=== PATIENT | female | born 1990 | race Caucasian/White ===

== ENCOUNTER 2017-12-29 11:58 | Inpatient (IN) | payer OTHER ==
[2017-12-29 12:21] VITALS: BMI 41.9
--- NOTE | 2017-12-29 13:41 | HP ---
CIWA Score - CIWA Score Nausea/Vomitin-Mild Nausea/No Vomiting Muscle Tremors: 4-Moderate,w/Arms Extend Anxiety: 4-Mod. Anxious/Guarded Agitation: 4-Moderately Restless Paroxysmal Sweats: 1-Minimal Palms Moist Orientation: 0-Oriented Tacttile Disturbances: 2-Mild Itch/Numbness/Burn Auditory Disturbances: 0-None Visual Disturbances: 0-None Headache: 2-Mild CIWA-Ar Total Score: 18 Admission ROS BHS - HPI Chief Complaint: ALCOHOL WITHDRAWAL SX Allergies/Adverse Reactions: Allergies Allergy/AdvReac Type Severity Reaction Status Date / Time No Known Allergies Allergy Verified 12/29/17 13:51 History of Present Illness: 27 YEARS OLD FEMALE WITH LONG HISTORY OF ALCOHOL NICOTINE DEPENDENCE HAS HYPERTENSION ANXIETY DEPRESSION IS ADMITTED TO DETOX Exam Limitations: No Limitations - Ebola screening Have you traveled outside of the country in the last 21 days: No Have you had contact with anyone from an Ebola affected area: No Have you been sick,other than usual withdrawal symptoms: No Do you have a fever: No - Review of Systems Constitutional: Changes in sleep, Weight Stable EENT: reports: Blurred Vision (CONTACT LENS CHANGE EVERY TWO WEEKS) Respiratory: reports: No Symptoms reported Cardiac: reports: No Symptoms Reported GI: reports: Nausea, Poor Fluid Intake, Abdominal cramping : reports: No Symptoms Reported Musculoskeletal: reports: No Symptoms Reported Integumentary: reports: Change in Color (BOTH ARMS) Neuro: reports: Tremors Endocrine: reports: No Symptoms Reported Hematology: reports: No Symptoms Reported Psychiatric: reports: Judgement Intact, Orientated x3, Anxious, Depressed Other Systems: Reviewed and Negative Patient History - Patient Medical History Hx Anemia: No Hx Asthma: No Hx Chronic Obstructive Pulmonary Disease (COPD): No Hx Cancer: No Hx Cardiac Disorders: No Hx Congestive Heart Failure: No Hx Hypertension: No Hx Hypercholesterolemia: No Hx Pacemaker: No HX Cerebrovascular Accident: No Hx Seizures: No Hx Dementia: No Hx Diabetes: No Hx Gastrointestinal Disorders: No Hx Liver Disease: No Hx Genitourinary Disorders: No Hx Sexually Transmitted Disorders: No Hx Renal Disease (ESRD): No Hx Thyroid Disease: No Hx Human Immunodeficiency Virus (HIV): No Hx Hepatitis C: No Hx Depression: Yes Hx Suicide Attempt: Yes (2009 CUT SELF) Hx Bipolar Disorder: No Hx Schizophrenia: No - Patient Surgical History Past Surgical History: No - PPD History Previous Implant?: Yes Documented Results: Negative w/proof Implanted On Prior [facility] Admission?: No PPD to be Administered?: Yes - Reproductive History Patient is a Female of Child Bearing Age (11 -55 yrs old): Yes Last Menstrual Period: 12/01/17 Patient : No - Smoking Cessation Smoking history: Current every day smoker Have you smoked in the past 12 months: Yes Cigars Per Day: 0 Hx Chewing Tobacco Use: No Initiated information on smoking cessation: Yes 'Breaking Loose' booklet given: 12/29/17 - Substance & Tx. History Hx Alcohol Use: Yes Hx Substance Use: No Substance Use Type: Alcohol Hx Substance Use Treatment: No ([facility]) - Substances Abused Alcohol-vodka Route: Oral Frequency: Daily Amount used: 2 pts. Age of first use: 17 Date of Last Use: 12/29/17 Family Disease History - Family Disease History Family History: Unremarkable Admission Physical Exam BHS - Vital Signs Vital Signs: Vital Signs - 24 hr 12/29/17 12:18 Temperature 99.7 F H Pulse Rate 126 H Respiratory 19 Rate Blood Pressure 168/101 - Physical General Appearance: Yes: Appropriately Dressed, Mild Distress, Obese, Tremorous , Irritable, Sweating, Anxious HEENTM: Yes: Hearing grossly Normal, Normocephalic, Normal Voice Respiratory: Yes: Chest Non-Tender, Lungs Clear, Normal Breath Sounds, No Respiratory Distress, No Accessory Muscle Use Neck: Yes: Supple, Trachea in good position Breast: Yes: Breasts Symetrical, No Discharge Cardiology: Yes: Regular Rhythm, S1, S2, Tachycardia Abdominal: Yes: Normal Bowel Sounds, Non Tender, Flat, Soft Genitourinary: Yes: Within Normal Limits Back: Yes: Normal Inspection Musculoskeletal: Yes: full range of Motion, Gait Steady Extremities: Yes: Normal Inspection, Normal Range of Motion, Non-Tender, Tremors Neurological: Yes: Fully Oriented, Alert, Motor Strength 5/5, Normal Response, Depressed Affect Integumentary: Yes: Warm Lymphatic: Yes: Within Normal Limits - Diagnostic (1) Alcohol dependence with uncomplicated withdrawal Current Visit: Yes Status: Acute (2) Hypertension Current Visit: Yes Status: Chronic Qualifiers: Hypertension type: essential hypertension Qualified Code(s): I10 - Essential (primary) hypertension (3) Depression (emotion) Current Visit: Yes Status: Suspected Qualifiers: Depression Type: dysthymia Qualified Code(s): F34.1 - Dysthymic disorder Cleared for Admission [facility] - Detox or Rehab [facility] Level of Care: Medically Managed Detox Regimen/Protocol: Librium [facility] Breath Alcohol Content Breath Alcohol Content: 0.094 Urine Pregancy Test - Result Urine Test Results: Negative- NO Line Present Urine Drug Screen - Results Drug Screen Negative: Yes
[2017-12-29] MEDS ORDERED: MENTHOL/PHENOL 1 EACH UD MM PRN (14:01)
[2017-12-29] MEDS ORDERED: P-EPHED 60MG/TRIPROLIDI 2.5MG TABLET PO PRN (14:01)
[2017-12-29] MEDS ORDERED: MAG HYDROX/AL HYDROX/SIMETH 30 ML UNIT-DOSE CUP PO PRN (14:01)
[2017-12-29] MEDS ORDERED: MAGNESIUM CITRATE 300 ML BOTTLE PO PRN (14:01)
[2017-12-29] MEDS ORDERED: MAGNESIUM HYDROX 2400MG/30ML ORAL SUSPENSION 30 ML CUP PO PRN (14:01)
[2017-12-29] MEDS ORDERED: ACETAMINOPHEN 325 MG TABLET (FP) PO PRN (14:01)
[2017-12-29] MEDS ORDERED: LOPERAMIDE HCL 2 MG CAPSULE PO PRN (14:01)
[2017-12-29] MEDS ORDERED: guaiFENesin/D-METHORPHAN HB 10 ML UNIT-DOSE CUPS PO PRN (14:01)
[2017-12-29] MEDS ORDERED: chlordiazePOXIDE HCL 25 MG CAPSULE PO PRN (14:01)
[2017-12-29] MEDS: NICOTINE 14 MG/24 HOURS TOPICAL PATCH TD SCH (15:17)
[2017-12-29] MEDS: chlordiazePOXIDE HCL 25 MG CAPSULE PO SCH ×2 (17:11→22:08)
[2017-12-29] MEDS: IBUPROFEN 400 MG TABLET (FP) PO PRN (20:18)
--- NOTE | 2017-12-29 21:39 | EKG ---
Test Reason : Blood Pressure : / mmHG Vent. Rate : 096 BPM Atrial Rate : 096 BPM P-R Int : 126 ms QRS Dur : 086 ms QT Int : 358 ms P-R-T Axes : 014 017 029 degrees QTc Int : 452 ms NORMAL SINUS RHYTHM NORMAL ECG NO PREVIOUS ECGS AVAILABLE Confirmed by MD ESHA, AISHA ([id number]) on 12/29/2017 9:39:12 PM Referred By: Confirmed By:AISHA BALBUENA MD
[2017-12-29] MEDS: THIAMINE HCL 100 MG TABLET (FP) PO SCH (22:08)
[2017-12-29] MEDS: MELATONIN 5 MG TABLETS PO PRN (22:09)
[2017-12-30 01:00] LABS: URINE APPEARANCE SLCLOUDY; URINE BILIRUBIN NEGATIVE (<2.0 mg/dL); URINE COLOR YELLOW; URINE GLUCOSE (UA) NEGATIVE (NEGATIVE); URINE KETONE NEGATIVE (NEGATIVE); URINE LEUK ESTERASE NEGATIVE (NEGATIVE); URINE NITRITE NEGATIVE (NEGATIVE); URINE PROTEIN NEGATIVE (NEGATIVE)
[2017-12-30] MEDS: chlordiazePOXIDE HCL 25 MG CAPSULE PO SCH ×4 (05:27→22:08)
[2017-12-30] MEDS: IBUPROFEN 400 MG TABLET (FP) PO PRN (05:30)
--- NOTE | 2017-12-30 07:42 | CONSULT ---
[facility] Psychiatric Consult - Data Date of interview: 12/30/17 Admission source: [facility] Identifying data: This is 27 years old female, simgle, living with family, with no income or support,with no psychiatric hospitalization history, long history of Alcohol and Nicotine dependence, presents with Alcohol withdrawal symptoms and seeking for detox. Substance Abuse History: - Smoking Cessation. Smoking history: Current every day smoker. Have you smoked in the past 12 months: Yes. Cigars Per Day: 0. Hx Chewing Tobacco Use: No. Initiated information on smoking cessation: Yes. ' Breaking Loose' booklet given: 12/29/17. - Substance & Tx. History. Hx Alcohol Use: Yes. Hx Substance Use: No. Substance Use Type: Alcohol. Hx Substance Use Treatment: No ([facility]). - Substances Abused. Alcohol- vodka. Route: Oral. Frequency: Daily. Amount used: 2 pts. Age of first use: 17. Date of Last Use: 12/29/17 Medical History: HTN Psychiatric History: Patient reports history of depression, reports suicidal attempt by cutting jackelin left wrist, no stitches applyed, no suicidal intention or attempts sinth then, reports taking prior to admission: Prozac 20mg poqd. Wellbutrin 100mg poqd Physical/Sexual Abuse/Trauma History: Denies Additional Comment: Prozac 20mg poqd. Wellbutrin 100mg poqd Mental Status Exam - Mental Status Exam Alert and Oriented to: Place, Person Cognitive Function: Fair Patient Appearance: Unkempt Mood: Apprehensive Affect: Mood Congruent Patient Behavior: Cooperative Speech Pattern: Appropriate Voice Loudness: Normal Thought Process: Goal Oriented Thought Disorder: Being Controlled Hallucinations: Denies Suicidal Ideation: Denies Homicidal Ideation: Denies Insight/Judgement: Fair Sleep: Difficulty falling asleep Appetite: Weight gain Muscle strength/Tone: Normal Gait/Station: Normal Additional Comments: Prozac 20mg poqd. Wellbutrin 100mg poqd Psychiatric Findings - Problem List ([place] 1, 2,3) (1) Nicotine dependence Current Visit: Yes Status: Acute (2) Alcohol-induced mood disorder Current Visit: Yes Status: Acute (3) Drug-induced mood disorder Current Visit: Yes Status: Acute (4) Alcohol dependence with uncomplicated withdrawal Current Visit: Yes Status: Acute - Initial Treatment Plan Initial Treatment Plan: Prozac 20mg poqd. Wellbutrin 100mg poqd
--- NOTE | 2017-12-30 09:34 | PN ---
BHS CIWA - CIWA Score Nausea/Vomitin-Mild Nausea/No Vomiting Muscle Tremors: 4-Moderate,w/Arms Extend Anxiety: 4-Mod. Anxious/Guarded Agitation: 3 Paroxysmal Sweats: 1-Minimal Palms Moist Orientation: 0-Oriented Tacttile Disturbances: 1-Very Mild Itch/Numbness Auditory Disturbances: 0-None Visual Disturbances: 0-None Headache: 2-Mild CIWA-Ar Total Score: 16 BHS Progress Note (SOAP) Subjective: sweat tremor restlessness irritable anxiety headache Objective: 12/30/17 09:31 Vital Signs Temperature 97.9 F 12/30/17 09:19 Pulse Rate 72 12/30/17 09:19 Respiratory Rate 20 12/30/17 09:19 Blood Pressure 132/100 12/30/17 09:19 O2 Sat by Pulse Oximetry (%) Laboratory Last Values Urine Color Yellow 12/29/17 14:55 Urine Appearance Slcloudy 12/29/17 14:55 Urine pH 6.0 (5.0-8.0) 12/29/17 14:55 Ur Specific [place] 1.015 (1.001-1.035) 12/29/17 14:55 Urine Protein Negative (NEGATIVE) 12/29/17 14:55 Urine Glucose (UA) Negative (NEGATIVE) 12/29/17 14:55 Urine Ketones Negative (NEGATIVE) 12/29/17 14:55 Urine Blood Negative (NEGATIVE) 12/29/17 14:55 Urine Nitrite Negative (NEGATIVE) 12/29/17 14:55 Urine Bilirubin Negative (<2.0 mg/dL) 12/29/17 14:55 Urine Urobilinogen 2.0 mg/dL (0.2-1.0) H 12/29/17 14:55 Ur Leukocyte Esterase Negative (NEGATIVE) 12/29/17 14:55 lab noted Assessment: 12/30/17 09:32 withdrawal sx 12/30/17 09:33 hypertension Plan: continue detox continue metoprolol
[2017-12-30 09:44] LABS: HEMATOCRIT 36.8 % (32.4-45.2); HEMOGLOBIN 11.6 GM/dL (10.7-15.3); MCHC 31.4 g/dl (32.0-36.0); MEAN CELL VOLUME 62.6 fl (80-96); PLATELET COUNT 467 K/MM3 (134-434); RBC 5.88 M/mm3 (3.60-5.2); RDW 17.3 % (11.6-15.6); WHITE BLOOD COUNT 9.3 K/mm3 (4.0-10.0)
[2017-12-30 09:49] LABS: MCH 19.7 pg (25.7-33.7)
[2017-12-30 09:56] LABS: CHLORIDE 105 mmol/L (98-107); POTASSIUM 4.3 mmol/L (3.5-5.1); SODIUM 140 mmol/L (136-145)
[2017-12-30] MEDS: NICOTINE 14 MG/24 HOURS TOPICAL PATCH TD SCH (10:09)
[2017-12-30] MEDS: FLUoxetine HCL 20 MG CAPSULE (FP) PO SCH (10:09)
[2017-12-30] MEDS: buPROPion HCL 100 MG TABLET PO SCH (10:09)
[2017-12-30] MEDS: PRENATAL VITAMINS W/ FOLIC ACID TABLET (FP) PO SCH (10:09)
[2017-12-30] MEDS: NICOTINE POLACRILEX 2 MG GUM BUC PRN ×4 (10:10→22:10)
[2017-12-30 10:14] LABS: ALBUMIN 4.1 g/dl (3.4-5.0); ALK PHOS 62 U/L (45-117); ANION GAP 9 (8-16); BILIRUBIN,TOTAL 0.6 mg/dL (0.2-1.0); BLOOD UREA NITROGEN 12 mg/dL (7-18); CALCIUM 8.9 mg/dL (8.5-10.1); CO2 26 mmol/L (21-32); CREATININE 0.8 mg/dL (0.55-1.02); GLUCOSE,RANDOM 86 mg/dL (74-106); SGOT/AST 43 U/L (15-37); SGPT/ALT 75 U/L (12-78); TOT PROT 7.3 g/dl (6.4-8.2)
[2017-12-30] MEDS: MELATONIN 5 MG TABLETS PO PRN (22:08)
[2017-12-30] MEDS: THIAMINE HCL 100 MG TABLET (FP) PO SCH (22:08)
[2017-12-31] MEDS: chlordiazePOXIDE HCL 25 MG CAPSULE PO SCH ×2 (06:05→10:42)
--- NOTE | 2017-12-31 10:39 | PN ---
S CIWA - CIWA Score Nausea/Vomitin-Mild Nausea/No Vomiting Muscle Tremors: 4-Moderate,w/Arms Extend Anxiety: 3 Agitation: 3 Paroxysmal Sweats: 1-Minimal Palms Moist Orientation: 0-Oriented Tacttile Disturbances: 0-None Auditory Disturbances: 0-None Visual Disturbances: 0-None Headache: 0-None Present CIWA-Ar Total Score: 12 BHS Progress Note (SOAP) Subjective: SWEAT TREMOR TROUBLE SLEEP AT NIGHT RESTLESSNESS ANXIETY Objective: 12/31/17 10:38 Vital Signs Temperature 97.7 F 12/31/17 10:23 Pulse Rate 83 12/31/17 10:23 Respiratory Rate 20 12/31/17 10:23 Blood Pressure 140/98 12/31/17 10:23 O2 Sat by Pulse Oximetry (%) Laboratory Last Values WBC 9.3 K/mm3 (4.0-10.0) 12/30/17 06:00 RBC 5.88 M/mm3 (3.60-5.2) H 12/30/17 06:00 Hgb 11.6 GM/dL (10.7-15.3) 12/30/17 06:00 Hct 36.8 % (32.4-45.2) 12/30/17 06:00 MCV 62.6 fl (80-96) L 12/30/17 06:00 MCH 19.7 pg (25.7-33.7) L 12/30/17 06:00 MCHC 31.4 g/dl (32.0-36.0) L 12/30/17 06:00 RDW 17.3 % (11.6-15.6) H 12/30/17 06:00 Plt Count 467 K/MM3 (134-434) H 12/30/17 06:00 MPV 11.0 fl (7.5-11.1) 12/30/17 06:00 Sodium 140 mmol/L (136-145) 12/30/17 06:00 Potassium 4.3 mmol/L (3.5-5.1) 12/30/17 06:00 Chloride 105 mmol/L (98-107) 12/30/17 06:00 Carbon Dioxide 26 mmol/L (21-32) 12/30/17 06:00 Anion Gap 9 (8-16) 12/30/17 06:00 BUN 12 mg/dL (7-18) 12/30/17 06:00 Creatinine 0.8 mg/dL (0.55-1.02) 12/30/17 06:00 Creat Clearance w eGFR > 60 (>60) 12/30/17 06:00 Random Glucose 86 mg/dL (74-106) 12/30/17 06:00 Calcium 8.9 mg/dL (8.5-10.1) 12/30/17 06:00 Total Bilirubin 0.6 mg/dL (0.2-1.0) 12/30/17 06:00 AST 43 U/L (15-37) H 12/30/17 06:00 ALT 75 U/L (12-78) 12/30/17 06:00 Alkaline Phosphatase 62 U/L (45-117) 12/30/17 06:00 Total Protein 7.3 g/dl (6.4-8.2) 12/30/17 06:00 Albumin 4.1 g/dl (3.4-5.0) 12/30/17 06:00 Urine Color Yellow 12/29/17 14:55 Urine Appearance Slcloudy 12/29/17 14:55 Urine pH 6.0 (5.0-8.0) 12/29/17 14:55 Ur Specific [place] 1.015 (1.001-1.035) 12/29/17 14:55 Urine Protein Negative (NEGATIVE) 12/29/17 14:55 Urine Glucose (UA) Negative (NEGATIVE) 12/29/17 14:55 Urine Ketones Negative (NEGATIVE) 12/29/17 14:55 Urine Blood Negative (NEGATIVE) 12/29/17 14:55 Urine Nitrite Negative (NEGATIVE) 12/29/17 14:55 Urine Bilirubin Negative (<2.0 mg/dL) 12/29/17 14:55 Urine Urobilinogen 2.0 mg/dL (0.2-1.0) H 12/29/17 14:55 Ur Leukocyte Esterase Negative (NEGATIVE) 12/29/17 14:55 RPR Titer Nonreactive (NONREACTIVE) 12/30/17 06:00 LAB NOTED Assessment: 12/31/17 10:38 WITHDRAWAL SX REQUESTS LIVER FUNCTION Plan: CONTINUE DETOX EXPLAINED LIVER FUNCTION LAB RESULT
[2017-12-31] MEDS: FLUoxetine HCL 20 MG CAPSULE (FP) PO SCH (10:42)
[2017-12-31] MEDS: buPROPion HCL 100 MG TABLET PO SCH (10:42)
[2017-12-31] MEDS: NICOTINE 14 MG/24 HOURS TOPICAL PATCH TD SCH (10:42)
[2017-12-31] MEDS: PRENATAL VITAMINS W/ FOLIC ACID TABLET (FP) PO SCH (10:42)
[2017-12-31] MEDS: NICOTINE POLACRILEX 2 MG GUM BUC PRN ×3 (10:43→15:59)
[2017-12-31] MEDS: IBUPROFEN 400 MG TABLET (FP) PO PRN (12:03)
[2017-12-31] MEDS: chlordiazePOXIDE 5 MG CAPSULE PO SCH ×2 (17:21→22:40)
[2017-12-31] MEDS: THIAMINE HCL 100 MG TABLET (FP) PO SCH (22:40)
[2018-01-01] MEDS: chlordiazePOXIDE 5 MG CAPSULE PO SCH ×2 (05:39→10:43)
[2018-01-01] MEDS: PRENATAL VITAMINS W/ FOLIC ACID TABLET (FP) PO SCH (10:43)
[2018-01-01] MEDS: buPROPion HCL 100 MG TABLET PO SCH (10:44)
[2018-01-01] MEDS: FLUoxetine HCL 20 MG CAPSULE (FP) PO SCH (10:44)
[2018-01-01] MEDS: NICOTINE 14 MG/24 HOURS TOPICAL PATCH TD SCH (10:45)
[2018-01-01] MEDS: NICOTINE POLACRILEX 2 MG GUM BUC PRN ×3 (10:46→22:22)
--- NOTE | 2018-01-01 13:52 | PN ---
BHS Progress Note (SOAP) Subjective: pt requesting an increase in dose of patch, going home tomorrow, wants med faxed to pharmacy Objective: 01/01/18 13:51 Vital Signs - 24 hr 12/31/17 12/31/17 12/31/17 14:15 18:52 22:52 Temperature 98.0 F 97.2 F L 97.9 F Pulse Rate 82 75 76 Respiratory 18 18 18 Rate Blood Pressure 123/85 128/81 126/82 01/01/18 01/01/18 01/01/18 00:30 03:30 06:19 Temperature 97.7 F Pulse Rate 88 Respiratory 18 18 18 Rate Blood Pressure 123/70 CBC, BMP 12/30/17 06:00 12/30/17 06:00 pt ambulatory Assessment: 01/01/18 13:51 alcohol detox for withdrawal nicotine withdrawal Plan: continue detox for alcohol increase nicotine patch
[2018-01-01] MEDS: NICOTINE 21 MG/24 HOURS TOPICAL PATCH TD SCH (14:25)
[2018-01-01] MEDS: chlordiazePOXIDE HCL 10 MG CAPSULE PO SCH ×2 (16:45→22:21)
[2018-01-01] MEDS: IBUPROFEN 400 MG TABLET (FP) PO PRN (18:42)
[2018-01-01] MEDS: MELATONIN 5 MG TABLETS PO PRN (22:21)
[2018-01-01] MEDS: THIAMINE HCL 100 MG TABLET (FP) PO SCH (22:21)
[2018-01-02] MEDS: chlordiazePOXIDE HCL 10 MG CAPSULE PO SCH (05:47)
[2018-01-02] MEDS: NICOTINE POLACRILEX 2 MG GUM BUC PRN (08:59)
[2018-01-02] MEDS: FLUoxetine HCL 20 MG CAPSULE (FP) PO SCH (09:47)
[2018-01-02] MEDS: buPROPion HCL 100 MG TABLET PO SCH (09:47)
[2018-01-02] MEDS: PRENATAL VITAMINS W/ FOLIC ACID TABLET (FP) PO SCH (09:48)
[2018-01-02] MEDS: IBUPROFEN 400 MG TABLET (FP) PO PRN (09:54)
--- NOTE | 2018-01-02 10:02 | PN ---
S Progress Note (SOAP) Subjective: alert,no complaint Objective: 01/02/18 10:00 Vital Signs Temperature 97 F L 01/02/18 07:41 Pulse Rate 80 01/02/18 07:41 Respiratory Rate 18 01/02/18 07:41 Blood Pressure 138/84 01/02/18 07:41 O2 Sat by Pulse Oximetry (%) Assessment: 01/02/18 10:00 detox completed,no withdrawal symptom Plan: discharge today,follow up with after care program as arrangement
--- NOTE | 2018-01-02 10:05 | DS ---
[facility] Detox Discharge Summary Admission Date: 12/29/17 Discharge Date: 01/02/18 - History Present History: Alcohol Dependence Additional Comments: follow up with after care program as arrangement Pertinent Past History: nicotine dependence hypertension - Physical Exam Results Vital Signs: Vital Signs Temperature 97 F L 01/02/18 07:41 Pulse Rate 80 01/02/18 07:41 Respiratory Rate 18 01/02/18 07:41 Blood Pressure 138/84 01/02/18 07:41 O2 Sat by Pulse Oximetry (%) Pertinent Admission Physical Exam Findings: withdrawal signs and symptom Vital Signs Temperature 97 F L 01/02/18 07:41 Pulse Rate 80 01/02/18 07:41 Respiratory Rate 18 01/02/18 07:41 Blood Pressure 138/84 01/02/18 07:41 O2 Sat by Pulse Oximetry (%) Laboratory Last Values WBC 9.3 K/mm3 (4.0-10.0) 12/30/17 06:00 RBC 5.88 M/mm3 (3.60-5.2) H 12/30/17 06:00 Hgb 11.6 GM/dL (10.7-15.3) 12/30/17 06:00 Hct 36.8 % (32.4-45.2) 12/30/17 06:00 MCV 62.6 fl (80-96) L 12/30/17 06:00 MCH 19.7 pg (25.7-33.7) L 12/30/17 06:00 MCHC 31.4 g/dl (32.0-36.0) L 12/30/17 06:00 RDW 17.3 % (11.6-15.6) H 12/30/17 06:00 Plt Count 467 K/MM3 (134-434) H 12/30/17 06:00 MPV 11.0 fl (7.5-11.1) 12/30/17 06:00 Sodium 140 mmol/L (136-145) 12/30/17 06:00 Potassium 4.3 mmol/L (3.5-5.1) 12/30/17 06:00 Chloride 105 mmol/L (98-107) 12/30/17 06:00 Carbon Dioxide 26 mmol/L (21-32) 12/30/17 06:00 Anion Gap 9 (8-16) 12/30/17 06:00 BUN 12 mg/dL (7-18) 12/30/17 06:00 Creatinine 0.8 mg/dL (0.55-1.02) 12/30/17 06:00 Creat Clearance w eGFR > 60 (>60) 12/30/17 06:00 Random Glucose 86 mg/dL (74-106) 12/30/17 06:00 Calcium 8.9 mg/dL (8.5-10.1) 12/30/17 06:00 Total Bilirubin 0.6 mg/dL (0.2-1.0) 12/30/17 06:00 AST 43 U/L (15-37) H 12/30/17 06:00 ALT 75 U/L (12-78) 12/30/17 06:00 Alkaline Phosphatase 62 U/L (45-117) 12/30/17 06:00 Total Protein 7.3 g/dl (6.4-8.2) 12/30/17 06:00 Albumin 4.1 g/dl (3.4-5.0) 12/30/17 06:00 Urine Color Yellow 12/29/17 14:55 Urine Appearance Slcloudy 12/29/17 14:55 Urine pH 6.0 (5.0-8.0) 12/29/17 14:55 Ur Specific [place] 1.015 (1.001-1.035) 12/29/17 14:55 Urine Protein Negative (NEGATIVE) 12/29/17 14:55 Urine Glucose (UA) Negative (NEGATIVE) 12/29/17 14:55 Urine Ketones Negative (NEGATIVE) 12/29/17 14:55 Urine Blood Negative (NEGATIVE) 12/29/17 14:55 Urine Nitrite Negative (NEGATIVE) 12/29/17 14:55 Urine Bilirubin Negative (<2.0 mg/dL) 12/29/17 14:55 Urine Urobilinogen 2.0 mg/dL (0.2-1.0) H 12/29/17 14:55 Ur Leukocyte Esterase Negative (NEGATIVE) 12/29/17 14:55 RPR Titer Nonreactive (NONREACTIVE) 12/30/17 06:00 - Treatment Hospital Course: Detox Protocol Followed, Detoxed Safely, Responded well, Discharged Condition Good Patient has Accepted a Rehab Referral to: declined - Medication Discharge Medications: Ambulatory Orders Fluoxetine HCl [Prozac -] 40 mg PO DAILY 12/29/17 Bupropion HCl [Wellbutrin -] 100 mg PO DAILY #30 tablet 12/30/17 Fluoxetine HCl [Prozac -] 20 mg PO DAILY #30 capsule 12/30/17 Metoprolol Succinate [Toprol XL -] 50 mg PO DAILY #30 tab.sr.24h 01/01/18 Nicotine Patch [Nicoderm Patch -] 21 mg TD DAILY #30 patch 01/01/18 Thiamine HCl [Vitamin B1 -] 100 mg PO HS #30 tablet 01/01/18 - Diagnosis (1) Alcohol dependence with uncomplicated withdrawal Current Visit: Yes Status: Acute (2) Alcohol-induced mood disorder Current Visit: Yes Status: Acute (3) Drug-induced mood disorder Current Visit: Yes Status: Acute (4) Nicotine dependence Current Visit: Yes Status: Acute (5) Hypertension Current Visit: Yes Status: Chronic Qualifiers: Hypertension type: essential hypertension Qualified Code(s): I10 - Essential (primary) hypertension - AMA Did Patient Leave Against Medical Advice: No
[2018-01-02 11:42] VITALS: BP 133/85; PULSE 86; TEMP 98.1
[2018-01-02] MEDS: NICOTINE 21 MG/24 HOURS TOPICAL PATCH TD SCH (12:04)
== END 2018-01-02 10:15 | disposition home or self-care (01) | DRG 775 ==
LOC: YASAS 11:58 → Y6N 14:44
PROVIDERS: ADMIT Surgery; ATTEND Surgery
PROC: HZ2ZZZZ Detoxification Services for Substance Abuse Treatment (ICD-10-PCS; principal; 2017-12-29)
DX: F10.230 Alcohol dependence with withdrawal, uncomplicated (principal); F17.210 Nicotine dependence, cigarettes, uncomplicated; F10.24 Alcohol dependence with alcohol-induced mood disorder; F19.24 Other psychoactive substance dependence with psychoactive substance-induced mood disorder; F34.1 Dysthymic disorder; I10 Essential (primary) hypertension; Z91.5 Personal history of self-harm
CPT/HCPCS: 36415; 80053; 81003; 85027; 86593; 93005; 93010